=== PATIENT | male | born 1955 | race Caucasian/White ===

== ENCOUNTER 2018-02-07 12:14 | Outpatient (CLI) | payer BC, SELFPAY ==
[2018-02-08 09:31] LABS: PSA, Diagnostic <0.1 ng/ml (0-4.5)
== END 2018-02-07 12:34 ==
PROVIDERS: PCP Internal Medicine; Visit Provider Nurse Practitioner
DX: C61 Malignant neoplasm of prostate (principal)
CPT/HCPCS: 36415; 84153

== ENCOUNTER 2020-05-29 10:34 | Outpatient (REF) | payer BC, SELFPAY ==
[2020-05-29 14:28] LABS: ALT 38 U/L (16-63); AST 21 U/L (15-37); Albumin 3.9 g/dL (3.4-5.0); Alkaline Phosphatase 56 U/L (46-116); Anion Gap 9.8 mmol/L (3-11); BUN 18 mg/dL (7-18); Bilirubin, Total 0.4 mg/dL (0.2-1.0); CO2 24.2 mmol/L (21.0-32.0); CREATININE 1.1 mg/dL (0.70-1.30); Calcium 9.2 mg/dL (8.5-10.1); Calculated LDL 123 mg/dL (<100); Chloride 106 mmol/L (98-107); Cholesterol 184 mg/dL (<200); Glucose 104 mg/dL (74-106); HDL Cholesterol 35 mg/dL (40-60); Potassium 4.7 mmol/L (3.5-5.1); Sodium 140 mmol/L (136-145); Total Protein 7.4 g/dL (6.4-8.2); Triglyceride 130 mg/dL (<150)
[2020-05-29 22:55] LABS: PSA, Diagnostic <0.1 ng/mL (0.0-4.5)
== END 2020-05-29 10:35 | disposition home or self-care (01) ==
LOC: NCHCN 10:34
PROVIDERS: PCP Internal Medicine; Visit Provider Physician Assistant
DX: Z00.00 Encounter for general adult medical examination without abnormal findings (principal); Z13.220 Encounter for screening for lipoid disorders; C61 Malignant neoplasm of prostate
CPT/HCPCS: 80053; 80061; 84153

== ENCOUNTER 2021-05-22 03:13 | Outpatient (CLI) | payer MEDICARE, SELFPAY ==
[2021-05-26 12:56] LABS: PSA, Ultrasensitive <0.01 ng/mL (<= 4.5)
== END 2021-05-22 03:14 | disposition home or self-care (01) ==
LOC: LBO 03:13
PROVIDERS: PCP Internal Medicine; Visit Provider Nurse Practitioner
DX: C61 Malignant neoplasm of prostate (principal)
CPT/HCPCS: 36415; 84153

== ENCOUNTER 2021-12-26 16:41 | Outpatient (REF) | payer MEDICARE, SELFPAY ==
[2021-12-26 15:44] LABS: Anion Gap 12.2 mmol/L (3-11); BUN 21 mg/dL (7-18); CO2 24.8 mmol/L (21.0-32.0); Calcium 9.5 mg/dL (8.5-10.1); Calculated LDL 137 mg/dL (<100); Chloride 102 mmol/L (98-107); Cholesterol 218 mg/dL (<200); Estimated GFR 83.52 (mL/min/1.73m2); Glucose 99 mg/dL (74-106); HDL Cholesterol 38 mg/dL (40-60); Potassium 4.5 mmol/L (3.5-5.1); Sodium 139 mmol/L (136-145); Triglyceride 217 mg/dL (<150)
[2021-12-26 22:40] LABS: PSA, Screening <0.1 ng/mL (<=4.5)
== END 2021-12-26 16:42 | disposition home or self-care (01) ==
LOC: NCHCN 16:41
PROVIDERS: PCP Internal Medicine; Visit Provider Physician Assistant
DX: I10 Essential (primary) hypertension (principal); C80.1 Malignant (primary) neoplasm, unspecified
CPT/HCPCS: 80048; 80061; 84153

== ENCOUNTER 2022-09-01 12:35 | Outpatient (REF) | payer MEDICARE, SELFPAY ==
[2022-09-01 16:05] LABS: Anion Gap 10.7 mmol/L (3-11); BUN 23 mg/dL (7-18); CO2 25.3 mmol/L (21.0-32.0); Calcium 9.3 mg/dL (8.5-10.1); Calculated LDL 113 mg/dL (<100); Chloride 104 mmol/L (98-107); Cholesterol 192 mg/dL (<200); Estimated GFR 83.01 (mL/min/1.73m2); Glucose 103 mg/dL (74-106); HDL Cholesterol 37 mg/dL (40-60); Potassium 4.7 mmol/L (3.5-5.1); Sodium 140 mmol/L (136-145); Triglyceride 211 mg/dL (<150)
[2022-09-01 22:49] LABS: PSA, Screening <0.1 ng/mL (<=4.5)
== END 2022-09-01 12:36 | disposition home or self-care (01) ==
LOC: NCHCN 12:35
PROVIDERS: PCP Internal Medicine; Visit Provider Physician Assistant
DX: E78.5 Hyperlipidemia, unspecified (principal); Z12.5 Encounter for screening for malignant neoplasm of prostate
CPT/HCPCS: 80048; 80061; 84153

== ENCOUNTER 2022-10-21 12:36 | Outpatient (CLI) | payer MEDICARE, SELFPAY ==
--- NOTE | 2022-10-21 | DI.RAD_ITS ---
Exam(s) XR KNEE LT 3V AP,LAT,REBECCA EXAM: XR KNEE LT 3V AP,LAT,REBECCA CLINICAL HISTORY: LEFT KNEE PAIN--M25.562. TECHNIQUE: 2D digital imaging was performed. Three views. COMPARISON: No exams were available for comparison FINDINGS: BONES: No acute fracture is present. No bony destructive lesion is seen. Spurring from the medial femoral condyle Small enthesophyte quadriceps insertion. JOINTS: The knee is normally aligned. No joint effusion is seen. Minimal periarticular spurring. SOFT TISSUE: Vascular calcifications IMPRESSION: No acute abnormality. DATA REPOSITORY: RADIATION DOSE DELIVERED:
== END 2022-10-21 12:56 ==
LOC: DI 12:36
PROVIDERS: PCP Internal Medicine; Visit Provider Physician Assistant Medical
DX: M25.562 Pain in left knee (principal)
CPT/HCPCS: 73562

== ENCOUNTER 2023-09-02 08:50 | Outpatient (REF) | payer MEDICARE, SELFPAY ==
[2023-09-02 16:25] LABS: ALT 45 U/L (16-63); AST 24 U/L (15-37); Albumin 4.1 g/dL (3.4-5.0); Alkaline Phosphatase 52 U/L (46-116); Anion Gap 12.5 mmol/L (3-11); BUN 22 mg/dL (7-18); Bilirubin, Total 0.5 mg/dL (0.2-1.0); CO2 25.5 mmol/L (21.0-32.0); CREATININE 1.1 mg/dL (0.70-1.30); Calcium 9.5 mg/dL (8.5-10.1); Calculated LDL 123 mg/dL (<100); Chloride 103 mmol/L (98-107); Cholesterol 197 mg/dL (<200); Estimated GFR 73.58 (mL/min/1.73m2); Glucose 110 mg/dL (74-106); HDL Cholesterol 39 mg/dL (40-60); Potassium 4.7 mmol/L (3.5-5.1); Sodium 141 mmol/L (136-145); Total Protein 7.4 g/dL (6.4-8.2); Triglyceride 177 mg/dL (<150)
[2023-09-02 22:42] LABS: PSA, Screening <0.1 ng/mL (<=4.5)
== END 2023-09-02 08:51 | disposition home or self-care (01) ==
LOC: NCHCN 08:50
PROVIDERS: PCP Internal Medicine; Visit Provider Physician Assistant
DX: E78.5 Hyperlipidemia, unspecified (principal); I10 Essential (primary) hypertension
CPT/HCPCS: 80053; 80061; 84153

== ENCOUNTER 2024-09-18 15:53 | Outpatient (REF) | payer MEDICARE, SELFPAY ==
[2024-09-18 15:46] LABS: Hemoglobin A1C 5.7 % (<5.7)
[2024-09-18 15:51] LABS: ALT 34 U/L (16-63); AST 21 U/L (15-37); Alkaline Phosphatase 55 U/L (46-116); Anion Gap 8.7 mmol/L (3-11); BUN 20 mg/dL (7-18); Bilirubin, Total 0.6 mg/dL (0.2-1.0); CO2 27.3 mmol/L (21.0-32.0); CREATININE 0.8 mg/dL (0.70-1.30); Calcium 9.2 mg/dL (8.5-10.1); Calculated LDL 125 mg/dL (<100); Chloride 104 mmol/L (98-107); Cholesterol 199 mg/dL (<200); Glucose 99 mg/dL (74-106); HDL Cholesterol 37 mg/dL (>or=40); Potassium 4.6 mmol/L (3.5-5.1); Sodium 140 mmol/L (136-145); Total Protein 7.4 g/dL (6.4-8.2); Triglyceride 186 mg/dL (<150)
[2024-09-19 02:10] LABS: PSA, Diagnostic <0.1 ng/mL (<=4.5)
== END 2024-09-18 15:54 | disposition home or self-care (01) ==
LOC: NCHCN 15:53
PROVIDERS: PCP Internal Medicine; Visit Provider Physician Assistant
DX: E78.5 Hyperlipidemia, unspecified (principal); R73.9 Hyperglycemia, unspecified; C61 Malignant neoplasm of prostate; I10 Essential (primary) hypertension
CPT/HCPCS: 80053; 80061; 83036; 84153

== ENCOUNTER 2024-10-02 00:02 | Outpatient (CLI) | payer MEDICARE, SELFPAY ==
--- NOTE | 2024-10-02 | DI.RAD_ITS ---
Exam(s) XR SHOULDER RT COMPLETE 2+V EXAM: XR SHOULDER RT COMPLETE 2+V CLINICAL HISTORY: Pain in unspecified shoulder, M25.519, progressive discomfort, no trauma. TECHNIQUE: 2D digital imaging was performed of the right shoulder. Five images were obtained. AP, Grashey, Y-view and axillary views were obtained. COMPARISON: No exams were available for comparison FINDINGS: BONES: No acute fracture is present. No bony destructive lesion is seen. JOINTS: No dislocation present. There are mild degenerative changes seen at the acromioclavicular joint. The glenohumeral joint is well maintained. SOFT TISSUE: Normal. IMPRESSION: Mild degenerative changes of the acromioclavicular joint. DATA REPOSITORY: RADIATION DOSE DELIVERED:
== END 2024-10-02 00:22 ==
LOC: DI 00:02
PROVIDERS: PCP Internal Medicine; Visit Provider Physician Assistant
DX: M19.011 Primary osteoarthritis, right shoulder (principal)
CPT/HCPCS: 73030

== ENCOUNTER → 2025-03-05 02:00 | Outpatient (CLI) | payer MEDICARE, SELFPAY ==
--- NOTE | 2025-03-05 | ETT_ITS ---
APPROVED REPORT Exam: Exercise Treadmill Patient Location: Out-Patient Room/Bed: Stress Nurse: Emerald Spain RN Ordering Provider:SANDI SHILOH, Contact Number: [phone] BMI: 36.91 Baseline Rhythm: Sinus Bradycardia; Incomplete RBBB. Comment: Frequent PAC's; Resting T wave inversion in lead III. Indications: Stable Angina; Forms of Angina Pectoris. Medical History Medical History: Stable Angina; HLD; HTN; Hyperglycemia; LBP; Obesity; MARY ANN. Cardiac Medications: Lisinopril. Allergies: None. Cardiac Risk Factors: HLD; HTN; Former Smoker; Obesity. Previous Cardiac Procedures: None. Pretest Chest Pain Characteristics: None. Exercise History: Sedentary. Physical Disabilities: None. Lung Sounds: Clear bilaterally throughout, anterior and posterior. Heart Sounds: S1 and S2 auscultated. Stress Test Details Test: Exercise stress testing was performed using a Adalid protocol. Rest Stress HR Resting HR Supine: 48 bpm Max Heart Rate (APMHR): 151 bpm Resting HR Standin bpm Target HR (85% APMHR): 128 bpm Max HR Achieved: 133 bpm % of APMHR: 88 Recovery HR: 66 bpm HR response to stress: Normal HR response to stress. BP Resting BP Supine: 112/70 mmHg Resting BP Standin/92 mmHg Max BP: 172/78 mmHg Recovery BP: 118/82 mmHg BP response to stress: Normal blood pressure response to stress. ECG Resting ECG: Sinus Bradycardia; Incomplete RBBB. Ectopy: Frequent PAC's. Comment: Resting T wave inversion in lead III. Stress ECG: Sinus Tachycardia; Incomplete RBBB. ST Change: Horizontal ST depression, Upsloping ST depression, Nondiagnostic resting ST abnormalities. Lead(s): I, II, aVR Stage: [address] Deviation: 1-3.5 mm Arrhythmia: Frequent PAC's; Frequent PVC's; Occasional couplets. Comment: Resting T wave inversion in lead III. Recovery ECG: Sinus Rhythm; Incomplete RBBB. Recovery ST Change: Horizontal ST depression, Upsloping ST depression, Nondiagnostic resting ST abnormalities. Lead(s): I, II, aVR Recovery ST Deviation: 1-3.5 mm Recovery Arrhythmia: Frequent PAC's; Frequent PVC's; Occasional couplets. Comment: Resting T wave inversion in lead III. Clinical Reason for Termination: Target HR Achieved, Dyspnea, Fatigue. Stress Symptoms: Dyspnea, General Fatigue. Exercise duration: 07 min37 sec Highest Stage Reached: Stage 3: 3.4 mph at 14% grade. Exercise capacity: 9.56 METs Angina Score: None Rodriguez Treadmill Score: 5.5 Rate Pressure Product: [id number] Stress ECG Conclusion 1. Resting electrocardiogram showed poor R wave progression 2. Patient exercised on the Adalid protocol and completed workload of 10 METS 3. Normal heart rate and blood pressure response to exercise. The patient achieved 88% of maximal predicted for age 4. There was no electrocardiographic evidence of myocardial ischemia 5. Atrial premature beats were noted throughout Rodriguez Treadmill Score is 5.5 which is Low risk. Stress Test Summary STAGE Time (mins) Speed (mph) Grade (%) HR BP SpO2 SYMPTOMS METS Supine 48 112/70 96 Standing 50 142/92 96 1 3 1.7 10 97 150/100 94 Pt. c/o mild shortness of breath. 4.5 2 6 2.5 12 113 93 Pt. c/o mild shortness of breath. 7 3 9 3.4 14 132 98 Pt. c/o mild shortness of breath. 10 1 min recovery 90 170/72 96 Pt. c/o mild shortness of breath. 3 min recovery 71 172/78 96 Pt. c/o mild shortness of breath. 6 min recovery 67 132/78 95 Pt. c/o minimal shortness of breath. 9 min recovery 66 118/82 95 Pt. states that all shortness of breath has resolved. Pt. performed an ETT stress test using the Adalid protocol. ETT stress test was stopped when pt. achieved a heart rate higher than the target heart rate and when pt. asked to stop related to mild shortness of breath and fatigue. Pt. stated that all shortness of breath and fatigue had resolved prior to leaving the Stress Lab. Pt. was noted to have resting T wave inversion in lead III. Pt. was noted to have horizontal and upsloping ST depression in leads I, II, and aVR ranging from 1-3.5mm in Stage 3 of exercise and Stage [address] depression recovered to baseline prior to pt. leaving the Stress Lab. Pt. denied any chest pain/pressure throughout the ETT stress test. Pt. was conversing pleasantly with nursing staff upon leaving the Stress Lab. Pt. left ambulatory in no apparent distress.
== END ==
PROVIDERS: PCP Physician Assistant; Visit Provider Physician Assistant
DX: I20.89 Other forms of angina pectoris (principal); I48.0 Paroxysmal atrial fibrillation
CPT/HCPCS: 93016; 93018; 93017